=== PATIENT | female | born 1935 | race Caucasian/White ===

== ENCOUNTER → 2017-06-21 | Outpatient (REF) | payer MEDICARE | LOC: M LAB REF 16:58 | PROVIDERS: ATTEND Surgery | DX: C44.219 Basal cell carcinoma of skin of left ear and external auricular canal (principal) ==

== ENCOUNTER → 2019-08-11 | Outpatient (CLI) | payer MEDICARE ==
[2019-08-11 18:12] LABS: INR 1.2; PROTHROMBIN TIME 14.9 SECONDS (11.8-14.0)
[2019-08-11 18:13] LABS: PARTIAL THROMBOPLASTIN TIME 32.3 SECONDS (25.0-38.4)
[2019-08-11 18:16] LABS: PLATELET COUNT, AUTOMATED 592 10^3/uL (150-450)
== END ==
LOC: M PLALAB 14:39
PROVIDERS: ATTEND Internal Medicine Pulmonary Disease
DX: R91.1 Solitary pulmonary nodule (principal)

== ENCOUNTER → 2019-08-25 | Outpatient (CLI) | payer MEDICARE ==
[~2019-08-25] MED LIST: ACCU1TAB2 PO; ACCU20TA PO; LIDOCAINE 1% MDV 20ML VIAL As Ordered ONE; NITR100C2 PO; NORV5TAB PO; SYNT50TA PO
--- NOTE | 2019-08-25 09:48 | REP ---
Chest x-ray: Single view. History: Status post needle biopsy right lung mass. Findings: There is a large mass in the right lung unchanged from CT study July 30, 2019. This was the biopsy target. There is no evidence of pneumothorax, hydrothorax, or parenchymal hemorrhage. Left lung is clear. Impression: No complication identified. Electronically Signed by Richardson Zhao MD 08/25/2019 09:39 A
[2019-08-25 11:16] VITALS: BP 103/51
--- NOTE | 2019-08-25 13:57 | REP ---
CT-guided right lower lobe lung biopsy The procedure is performed by CLAUDIO Gonzalez, under the direct supervision of Dr. Zhao. The risks and benefits of the procedure were explained to the patient and informed consent was obtained both orally and written. Directly prior to the start of the procedure, a formal timeout was done in the exam room. The right lower lobe mass was localized using CT guidance. Skin was prepped and draped in the usual sterile fashion. 2 ml of 1% lidocaine 10 mg/ml was used as a local anesthetic. Using CT guidance a 19/20 gauge coaxial needle biopsy system was inserted and advanced into the nodule. 5 core biopsy samples were obtained and sent to the lab. CT images obtained directly after the biopsy show no evidence of pneumothorax. After the appropriate amount of monitored convalescence the patient was discharged from the department. Reviewed by CLAUDIO Goodman 08/25/2019 01:23 P Electronically Signed by Richardson Zhao MD 08/25/2019 01:48 P
== END ==
LOC: M IRPRO 08:01
PROVIDERS: ATTEND Internal Medicine Pulmonary Disease
DX: C34.31 Malignant neoplasm of lower lobe, right bronchus or lung (principal)

== ENCOUNTER 2019-09-03 19:36 | Emergency (ER) | payer MEDICARE ==
[~2019-09-03] VITALS: Ht 165.1 cm; Wt 59.1 kg
[~2019-09-03 19:36] MED LIST changes: -LIDOCAINE 1% MDV 20ML VIAL As Ordered ONE; -NITR100C2 PO
[2019-09-03] MEDS ORDERED: NITR100C2 PO (20:17)
--- NOTE | 2019-09-03 20:29 | REP ---
Clinical: Chest pain. Comparison: 08/25/2019. Findings: Large right sided mid lung mass measures 8.7 cm and appears unchanged. Bibasilar atelectasis and possible small pleural reactions are suggested. No pneumothorax. Cardiac silhouette is normal. Skeletal structures intact. Impression: 1. Known large right lung mass. 2. New mild basilar atelectasis and possible small pleural reactions. Electronically Signed by Dashawn Lugo MD 09/03/2019 08:20 P
[2019-09-03] MEDS ORDERED: traMADol 50 MG TAB (BULK 4 TAB ED) PO ONE (21:30)
[2019-09-03] MEDS ORDERED: traMADol 50 MG TAB PO ONE (21:30)
[2019-09-03 22:10] VITALS: BP 132/60
--- NOTE | 2019-09-05 09:23 | ED PDOC ---
Post-Departure Follow-Up lambert murray faxed formal report of cxr for fu Darcy Rubio MD Sep 05, 2019 09:23
== END 2019-09-03 22:10 | disposition home or self-care (01) ==
LOC: M ED 19:36
DX: S23.41XA Sprain of ribs, initial encounter (principal); Y92.9 Unspecified place or not applicable; Y93.9 Activity, unspecified; R05 Cough; I10 Essential (primary) hypertension; J98.11 Atelectasis; R91.1 Solitary pulmonary nodule; Z79.899 Other long term (current) drug therapy; Z87.891 Personal history of nicotine dependence; Z88.8 Allergy status to other drugs, medicaments and biological substances